=== PATIENT | female | born 1975 | race Caucasian/White ===

== ENCOUNTER 2020-08-07 12:34 | Emergency (ER) | payer OTHER, SELFPAY ==
[2020-08-07 12:50] VITALS: BP 145/102; PULSE 76; RESP 20; TEMP 36.7; O2SAT 98; BMI 40.9
--- NOTE | 2020-08-07 13:17 | HMH.EDUTC ---
[facility] [place] Disposition Clinical Impression: Bronchitis Sinusitis Qualifiers: Sinusitis location: unspecified location Chronicity: unspecified Qualified Code(s): J32.9 - Chronic sinusitis, unspecified Disposition: Home, Self-Care Condition on Discharge: Good Instructions: Sinusitis, Sinus Headache, DI for Sinusitis, Acute Bronchitis Additional Instructions: *Monitor Temp, Over the counter Motrin or Tylenol as directed/as needed Tylenol every 4 hours and Motrin every 6 hours (as long as your family doctor has told you that you can take it) for fever or pain. and straight to ER if unable to lower temp less than 101.0 after medication given *Warm salt water gargles may help to soothe the throat *Throat Lozenges *Warm fluids like tea with honey may help to soothe the throat *Sleep elevated *Humidifier/Vaporizer *Flonase 2 sprays in each nostril daily but be aware that it may take 2-3 days before you notice improvement Your throat swab was sent for culture. Those results are typically sent to your primary care. Be sure to follow up in 2-3 days with your family doctor/primary care physician if no improvement so they can review those result and treat if necessary. If you don?t have a primary care doctor, I recommend you get one but in the mean time, you will have to return to a walk in clinic Follow up IMMEDIATELY for new or worsening symptoms or no Noticeable improvement over the next 48-72 hours. 911 for difficulty breathing or swallowing Your blood pressure was elevated in [facility] today make sure to follow up with Family Doctor for re-evaluation You was tested for today for COVID19 your test result should be back later this evening, you may call back later this evening to see if your test results are back and the result You was given a handout with instructions for Self Quarantine and Self isolation for while you wait on test results and what to do if they are positive Prescriptions: Fluticasone Propionate [Flonase 50mcg nasal spray 16gm] 1 spr NS DAILY #1 bottle Transmission Status: Pending to [facility] methylPREDNISolone [Medrol 4mg tab] 4 mg PO DIRECTED #21 tab Transmission Status: Pending to [facility] Azithromycin [Z-Sy 250mg Tab] 250 mg PO DIRECTED #6 tab Transmission Status: Pending to [facility] Referrals: Pablo Gonsalez MD [Primary Care Provider] - As needed Forms: Work/School Release Time of Disposition: 13:22 Medical Decision Making - Alexandro Inquiry Pt receiving controlled substance: No Alexandro was queried for this patient: No Vital Signs: 08/07/20 12:50 Temperature 98.1 F Temperature Source Oral Pulse Rate [Left Brachial] 76 Respiratory Rate 20 Blood Pressure [Left Arm] 145/102 H Blood Pressure Mean [Left Arm] 116 Blood Pressure Source [Left Arm] Automatic Cuff Blood Pressure Position [Left Arm] Sitting 02 Sat by Pulse Oximetry 98 Oxygen Delivery Method Room Air - Lab Data Lab results reviewed: Yes: I reviewed the patient's lab results. Orders (Tests/Meds): ORDERS Category Date Time Status Covid-19 Nasal PCR ([facility]) Routine Lab 08/07/20 13:08 Ordered [facility] UTC HPI - General Stated complaint: Cough, congestion Time Seen by Provider: 08/07/20 13:17 Mode of Arrival: Ambulatory Source of Information: Patient Limitations: No Limitations Description of Symptoms (Recalled from Triage Doc. by RN): PATIENT C/O COUGH, CONGESTION, SORE THROAT, AND HEADACHE SINCE THIS WEEKEND. DENIES ANY KNOWN SICK CONTACTS HEENT Symptoms (Recalled from RN notes): Yes Resp Symptoms (Recalled from RN notes): Yes Skin Symptoms (Recalled from RN notes): No MS Symptoms (Recalled from RN notes): No Functional Status (Recalled from RN notes): WNL - History of Present Illness Provider Complaint: Patient states that she started feeling sick over the weekend and has continued to get worse States that she has been having sinus pain and pressure for over a week wit
[2020-08-07 13:24] VITALS: BP 145/102; PULSE 76; RESP 20; TEMP 36.7; O2SAT 98
[2020-08-07 13:55] LABS: UTC Influenza A Antigen Negative (Negative); UTC Strep Screen (Rapid) Negative (Negative)
[2020-08-07 13:56] LABS: UTC Influenza B Antigen Negative (Negative)
== END 2020-08-07 13:31 | disposition home or self-care (01) ==
PROVIDERS: Emergency Provider Nurse Practitioner; PCP Internal Medicine Adolescent Medicine
DX: Z20.828 Contact with and (suspected) exposure to other viral communicable diseases (principal); J20.9 Acute bronchitis, unspecified; J32.9 Chronic sinusitis, unspecified
CPT/HCPCS: 87804; 87880; 99202; U0003

== ENCOUNTER 2020-10-14 16:19 | Emergency (ER) | payer OTHER, SELFPAY ==
[2020-10-14 16:40] VITALS: BP 123/72; PULSE 89; RESP 20; TEMP 36.4; O2SAT 99; BMI 42.5
[2020-10-14 17:20] VITALS: BP 123/72; PULSE 89; RESP 20; TEMP 36.4; O2SAT 99
--- NOTE | 2020-10-14 17:22 | HMH.EDUTC ---
[facility] [place] Clinical Impression: Exposure to COVID-19 virus Disposition: Home, Self-Care Condition on Discharge: Good Instructions: Preventing the Spread of Coronavirus Discharge Instructions Additional Instructions: Drink plenty of fluids. Take tylenol for pain or fever. Return if you begin to have difficulty breathing. Follow up with your regular doctor. GO TO THE ER FOR ANY WORSENING SYMPTOMS Referrals: Pablo Gonsalez MD [Primary Care Provider] - Forms: Work/School Release Time of Disposition: 17:24 Medical Decision Making - Medical Records Medical records reviewed: No: I reviewed the patient's medical records. - Alexandro Inquiry Pt receiving controlled substance: No Vital Signs: 10/14/20 16:40 10/14/20 17:20 Temperature 97.5 F L 97.5 F L Temperature Source Oral Pulse Rate 89 Pulse Rate [Left Brachial] 89 Respiratory Rate 20 20 Blood Pressure 123/72 Blood Pressure [Left Arm] 123/72 Blood Pressure Mean [Left Arm] 89 Blood Pressure Source [Left Arm] Automatic Cuff Blood Pressure Position [Left Arm] Sitting 02 Sat by Pulse Oximetry 99 Oxygen Delivery Method Room Air Orders (Tests/Meds): ORDERS Category Date Time Status Covid-19 Nasal PCR ([facility]) Routine Lab 10/14/20 16:45 [place] [facility] [place] - General Stated complaint: Covid Test Exposed Time Seen by Provider: 10/14/20 17:22 Mode of Arrival: Ambulatory Source of Information: Patient Limitations: No Limitations Description of Symptoms (Recalled from Triage Doc. by RN): REQUESTING COVID TEST D/T EXPOSURE; DENIES SYMPTOMS HEENT Symptoms (Recalled from RN notes): No Resp Symptoms (Recalled from RN notes): No Skin Symptoms (Recalled from RN notes): No MS Symptoms (Recalled from RN notes): No Functional Status (Recalled from RN notes): WNL - History of Present Illness Provider Complaint: She is here needing to be tested for covid. She denies any symptoms so far. - Related Data Home Medications Medication Instructions Recorded Confirmed Escitalopram Oxalate 10 mg PO DAILY 03/21/18 08/07/20 Previous Rx's Medication Instructions Recorded Azithromycin [Z-Sy 250mg Tab] 250 mg PO DIRECTED #6 tab 08/07/20 Fluticasone Propionate [Flonase 1 spr NS DAILY #1 bottle 10/26/20 50mcg nasal spray 16gm] methylPREDNISolone [Medrol 4mg 4 mg PO DIRECTED #21 tab 08/07/20 tab] Allergies Allergy/AdvReac Type Severity Reaction Status Date / Time No Known Allergies Allergy Verified 08/17/19 18:48 - Worker's Comp Is this a Worker's Comp case?: No [facility] History - Hepatitis A Screen Drug use history?: No High risk sexual behaviors?: No History of sexually transmitted infection?: No Currently employed?: No Childcare worker?: No Do you have indoor plumbing?: Yes Do you have electricity?: Yes Attestation statement:: This patient has been screened for Hepatitis A risk factors. I have reviewed the patient's past medical history: Yes Medical History: Denies:: Cancer, Diabetes Mellitus Type 1, Diabetes Mellitus Type 2, MRSA Amputation: No Fractures: No Comment: esure placement. back fusion - Social History Smoking Status: Never smoker Alcohol Intake: never Substance Use Type: denies use Occupational Status: other Household Members: family Family Hx:: Non-contributory ROS Obtained: Yes All systems reviewed & no additional complaints - Constitutional Constitutional: Reports system reviewed and no additional complaints, except as docu - Eyes Eyes: Reports system reviewed and no additional complaints, except as docu - ENT Ears, Nose, Mouth, and Throat: Reports system reviewed and no additional complaints, except as docu - Cardiovascular Cardiovascular: Reports system reviewed and no additional complaints, except as docu - Respiratory Respiratory: Yes system reviewed and no additional complaints, except as docu Physical Exam - General General appearance: alert, in no
== END 2020-10-14 17:40 | disposition home or self-care (01) ==
PROVIDERS: Emergency Provider Nurse Practitioner Family; PCP Internal Medicine Adolescent Medicine
DX: Z20.822 Contact with and (suspected) exposure to COVID-19 (principal); F33.1 Major depressive disorder, recurrent, moderate; Z79.899 Other long term (current) drug therapy
CPT/HCPCS: 99202; G0463; U0003